=== PATIENT | female | born 1990 | race African-American/Black ===

== ENCOUNTER 2023-09-18 09:51 | Emergency (ER) | payer MEDICARE ==
[~2023-09-18] VITALS: Ht 160 cm; Wt 129.3 kg
[2023-09-18] MEDS ORDERED: METHYLPREDNISOLONE SOD SUCC 125 MG/2ML VIAL IV ONE (10:15)
[2023-09-18] MEDS ORDERED: ALBUTEROL/IPRATROPIUM 3 ML NEB NEB ONE ×2 (10:15→12:00)
[2023-09-18 10:28] LABS: BASOPHILS % 0.6 % (0.0-1.0); EOSINOPHILS # (AUTO) 0.5 (0.0-0.4); EOSINOPHILS % 7.6 % (0.0-6.0); HEMATOCRIT 37.8 % (34.2-44.1); HEMOGLOBIN 12.8 g/dL (12.0-16.0); LYMPHOCYTES # (AUTO) 2.7 (1.0-3.2); LYMPHOCYTES % 42.2 % (18.0-39.1); MEAN CORPUSCULAR HEMOGLOBIN 31.8 pg (28-32); MEAN CORPUSCULAR HGB CONC 33.9 g/dL (31-35); MEAN CORPUSCULAR VOLUME 93.8 fL (81-99); MONOCYTES # (AUTO) 0.4 (0.2-0.8); MONOCYTES % 5.4 % (4.4-11.3); NEUTROPHILS # (AUTO) 2.8 (2.1-6.9); PLATELET COUNT 324 x10e3/uL (140-360); RED BLOOD COUNT 4.03 x10e6/uL (3.6-5.1); WHITE BLOOD COUNT 6.45 x10e3/uL (4.8-10.8)
[2023-09-18 10:31] VITALS: PULSE 101; RESP 18; O2SAT 99
[2023-09-18 10:48] LABS: CALCIUM 9.3 mg/dL (8.4-10.2); CREATININE, SERUM 0.8 mg/dL (0.57-1.11)
[2023-09-18] MEDS ORDERED: PREDNISONE20 MG PO (11:45)
[2023-09-18] MEDS ORDERED: BENZONATATE100 MG PO (11:45)
[2023-09-18] MEDS ORDERED: PROVENTIL HFA6.7 GM INH (11:47)
[2023-09-18] MEDS ORDERED: AZITHROMYCIN250 MG PO (11:47)
[2023-09-18] MEDS ORDERED: ALBUTEROL/IPRATROPIUM 3 ML NEB ONE (11:55)
[2023-09-18 11:56] VITALS: PULSE 98; RESP 18; O2SAT 96
[2023-09-18 11:57] VITALS: PULSE 98; RESP 18
[2023-09-18 11:58] LABS: CLARITY,URINE CLEAR (CLEAR); COLOR,URINE YELLOW (YELLOW)
[2023-09-18 11:59] LABS: BILIRUBIN,URINE NEGATIVE (NEGATIVE); GLUCOSE, URINE NEGATIVE (NEGATIVE); KETONES,URINE NEGATIVE (NEGATIVE); LEUKOCYTE ESTERASE ,URINE NEGATIVE (NEGATIVE); NITRITE,URINE NEGATIVE (NEGATIVE); PH,URINE 6 (5 - 7); PROTEIN,URINE DIPSTICK NEGATIVE (NEGATIVE); URINE UROBILINOGEN 0.2 mg/dL (0.2 - 1)
[2023-09-18 12:05] LABS: BACTERIA,URINE MODERATE /HPF; EPITHELIAL CELLS,URINE MODERATE /LPF; MUCUS,URINE MODERATE (RARE); RBC,URINE 0-5 /HPF (0-5); TRICHOMONAS,URINE FEW; WBC,URINE (MAN) 0-5 /HPF (0-5)
[2023-09-18 12:45] VITALS: O2SAT 100
== END 2023-09-18 12:45 | disposition home or self-care (01) ==
LOC: ER 09:58
DX: R05.9 Cough, unspecified (principal); J45.901 Unspecified asthma with (acute) exacerbation; G47.30 Sleep apnea, unspecified; Z20.822 Contact with and (suspected) exposure to COVID-19
CPT/HCPCS: 36415; 71045; 80048; 81001; 85025; 87400; 87420; 93005; 94640; 94799; 99284; J2930; U0002